=== PATIENT | female | born 1940 | race Caucasian/White ===

== ENCOUNTER 2021-08-17 00:52 | Inpatient (IN) | payer OTHER, BC ==
[2021-08-17 00:59] VITALS: BMI 25.4
[2021-08-17] MEDS ORDERED: MAG HYDROX/AL HYDROX/SIMETH -MYLANTA- ORAL SUSPENSION PO ONE (01:26)
[2021-08-17] MEDS ORDERED: ACETAMINOPHEN 1000 MG/100 ML BAG IVPB ONE (01:26)
[2021-08-17] MEDS ORDERED: FAMOTIDINE 20 MG/50 ML IVPB 20 MG/50 ML MG IVPB ONE (01:26)
[2021-08-17] MEDS ORDERED: MAG HYDROX/AL HYDROX/SIMETH 30 ML UNIT-DOSE CUP ONE (01:32)
[2021-08-17] MEDS ORDERED: ACETAMINOPHEN INJECTION 100 ML IVPB ONE (01:32)
[2021-08-17] MEDS ORDERED: FAMOTIDINE 10 MG/ML VIAL IVPB ONE (01:33)
[2021-08-17 01:58] LABS: BASO % 0.5 % (0-2.0); EOS % 1.2 % (0-4.5); HEMATOCRIT 44.3 % (32.4-45.2); HEMOGLOBIN 14.8 GM/dL (10.7-15.3); LYMPH % 9.9 % (8-40); MCH 28.9 pg (25.7-33.7); MCHC 33.5 g/dl (32.0-36.0); MEAN CELL VOLUME 86.4 fl (80-96); MEAN PLT VOLUME 7.5 fl (7.5-11.1); MONO % 2.9 % (3.8-10.2); NEUT % 85.5 % (42.8-82.8); PLATELET COUNT 269 10^3/uL (134-434); RBC 5.12 M/mm3 (3.60-5.2); RDW 14.5 % (11.6-15.6); WHITE BLOOD COUNT 8.7 K/mm3 (4.0-10.0)
[2021-08-17 02:04] LABS: EPI CELLS 22 /uL (0-25.1); HYALINE CASTS 2 /uL (0-3.1); PH,URINE 6.5 (5.0-8.0); URINE APPEARANCE CLOUDY; URINE BACTERIA 141 /uL (0-1359); URINE BILIRUBIN NEGATIVE (NEGATIVE); URINE COLOR YELLOW; URINE GLUCOSE (UA) NEGATIVE (NEGATIVE); URINE KETONE TRACE (NEGATIVE); URINE LEUK ESTERASE 1+ (NEGATIVE); URINE NITRITE NEGATIVE (NEGATIVE); URINE PROTEIN 1+ (NEGATIVE); URINE WBC 86 /uL (0-25.8)
[2021-08-17 02:05] LABS: INR 1.08 (0.83-1.09); PROTHROMBIN TIME (PATIENT) 12.4 SEC (9.7-13.0)
[2021-08-17 02:07] LABS: ACTIVATED PTT 37.5 SECONDS (25.2-36.5)
[2021-08-17 02:20] LABS: ALBUMIN 3.6 g/dl (3.4-5.0); BLOOD UREA NITROGEN 12.2 mg/dL (7-18); CALCIUM 9.1 mg/dL (8.5-10.1); MAGNESIUM 2.5 mg/dL (1.8-2.4)
[2021-08-17 02:23] LABS: CREATININE 0.5 mg/dL (0.55-1.3); PHOSPHOROUS 3.3 mg/dL (2.5-4.9)
[2021-08-17 02:25] LABS: BILIRUBIN,TOTAL 0.5 mg/dL (0.2-1); TOT PROT 7.5 g/dl (6.4-8.2)
[2021-08-17] MEDS ORDERED: morphine CARPU-JECT 2 MG/1 ML DISP.SYRIN IVPUSH ONE (03:49)
[2021-08-17] MEDS ORDERED: morphine SULFATE 4 MG/ML VIAL ONE (03:53)
[2021-08-17] MEDS ORDERED: BENZOCAINE 20% 57 GM BOTTLE TP ONE ×2 (04:04)
[2021-08-17] MEDS ORDERED: LIDOCAINE VISCOUS 2% ORAL/TOP 15 ML UNIT-DOSE CUP MM ONE (04:05)
[2021-08-17] MEDS ORDERED: LIDOCAINE HCL 2% JELLY 10 ML CARTRIDGE ONE (04:26)
[2021-08-17] MEDS ORDERED: SODIUM CHLORIDE 1,000 ML IV SCH (05:00)
[2021-08-17] MEDS ORDERED: FAMOTIDINE 20 MG/50 ML IVPB 20 MG/50 ML MG IVPB SCH (10:00)
[2021-08-17] MEDS ORDERED: BUPIVACAINE HCL/PF 0.5% (5MG/ML) 10 ML VIAL ONE ×2 (10:31→14:09)
[2021-08-17] MEDS ORDERED: LIDOCAINE HCL 1%, 10 MG/ML (20ML VIAL) ONE (10:31)
[2021-08-17] MEDS: INSULIN SLIDING SCALE (NOVOLOG) 1 VIAL SQ SCH ×4 (10:55→22:00)
[2021-08-17] MEDS ORDERED: DEXAMETHASONE SOD PHOSPHATE 4 MG/1 ML VIAL ONE (12:20)
[2021-08-17] MEDS ORDERED: LIDOCAINE HCL 2% 100 MG/5 ML DISP.SYRIN ONE (12:20)
[2021-08-17] MEDS ORDERED: ONDANSETRON 4 MG/2 ML VIAL ONE ×2 (12:20→14:24)
[2021-08-17] MEDS ORDERED: SUCCINYLCHOLINE CHLORIDE 200 MG/10 ML SYRINGE ONE (12:22)
[2021-08-17] MEDS ORDERED: ROCURONIUM BROMIDE 100 MG/10 ML VIAL ONE (12:22)
[2021-08-17] MEDS ORDERED: PROPOFOL 20 ML ONE ×2 (12:22→14:37)
[2021-08-17] MEDS ORDERED: MIDAZOLAM HCL 2 MG/2 ML SINGLE DOSE VIAL ONE (12:22)
[2021-08-17 12:35] LABS: BASO % 0.4 % (0-2.0); EOS % 3.5 % (0-4.5); HEMATOCRIT 47.4 % (32.4-45.2); HEMOGLOBIN 15.9 GM/dL (10.7-15.3); LYMPH % 16.9 % (8-40); MCHC 33.5 g/dl (32.0-36.0); MEAN CELL VOLUME 86.4 fl (80-96); MEAN PLT VOLUME 7.6 fl (7.5-11.1); MONO % 8.4 % (3.8-10.2); NEUT % 70.8 % (42.8-82.8); PLATELET COUNT 270 10^3/uL (134-434); RBC 5.48 M/mm3 (3.60-5.2); RDW 14.6 % (11.6-15.6); WHITE BLOOD COUNT 10.3 K/mm3 (4.0-10.0)
[2021-08-17 13:05] LABS: ALBUMIN 3.6 g/dl (3.4-5.0); BLOOD UREA NITROGEN 8.2 mg/dL (7-18); CALCIUM 9.2 mg/dL (8.5-10.1); MAGNESIUM 2.5 mg/dL (1.8-2.4)
[2021-08-17 13:08] LABS: CREATININE 0.5 mg/dL (0.55-1.3); PHOSPHOROUS 3.5 mg/dL (2.5-4.9)
[2021-08-17 13:10] LABS: BILIRUBIN,TOTAL 0.6 mg/dL (0.2-1); TOT PROT 7.7 g/dl (6.4-8.2)
[2021-08-17] MEDS ORDERED: LIDOCAINE HCL 1%, 10 MG/ML (20ML VIAL) NR ONE (13:11)
[2021-08-17] MEDS ORDERED: BUPIVACAINE HCL/PF 0.5% (5MG/ML) 10 ML VIAL IJ ONE (13:12)
[2021-08-17] MEDS ORDERED: BUPIVACAINE HCL/PF 0.25% (2.5MG/ML) 10 ML VIAL IJ ONE (14:00)
[2021-08-17] MEDS ORDERED: KETOROLAC TROMETHAMINE 30 MG/1 ML VIAL ONE (14:49)
[2021-08-17] MEDS ORDERED: NEOSTIGMINE METHYLSULFATE 0.5 MG/ML - 10 ML MDV ONE (14:59)
[2021-08-17] MEDS ORDERED: PROMETHAZINE HCL 25 MG/1 ML VIAL IVPUSH PRN ×2 (15:17→15:33)
[2021-08-17] MEDS ORDERED: ONDANSETRON 4 MG/2 ML VIAL IVPUSH PRN ×3 (15:17→15:33)
[2021-08-17] MEDS ORDERED: LACTATED RINGERS SOLUTION 1,000 ML IV SCH ×3 (15:30→15:33)
[2021-08-17] MEDS ORDERED: oxyCODONE HCL 5 MG TABLET PO PRN (15:35)
[2021-08-17] MEDS: ACETAMINOPHEN 500 MG TABLET (FP) PO SCH ×2 (15:45→23:50)
[2021-08-17] MEDS ORDERED: ceFAZolin SODIUM 1 GM VIAL ONE (16:55)
[2021-08-17] MEDS ORDERED: CEFAZOLIN 1 GM in DEXTROSE 5%-WATER - 50 ML IVPB ONE (16:55)
[2021-08-17] MEDS ORDERED: ALBUTEROL SO4 2.5/IPRATROPIUM 0.5 INH SOL 3 ML VIAL.NEB. NEB PRN (19:05)
[2021-08-17] MEDS ORDERED: IBUPROFEN 600 MG TABLET (FP) PO PRN (21:30)
[2021-08-17] MEDS: MYCOPHENOLATE MOFETIL 250 MG CAPSULE PO SCH (21:43)
[2021-08-17] MEDS: FAMOTIDINE 20 MG/50 ML IVPB 20 MG/50 ML MG IVPB SCH (21:44)
[2021-08-17] MEDS: ROSUVASTATIN CA 5 MG TABLET PO SCH (21:44)
[2021-08-18] MEDS ORDERED: ACETAMINOPHEN 1000 MG/100 ML BAG IVPB ONE (05:56)
[2021-08-18] MEDS: INSULIN SLIDING SCALE (NOVOLOG) 1 VIAL SQ SCH ×4 (06:21→22:36)
[2021-08-18 09:23] LABS: BASO % 0.3 % (0-2.0); EOS % 2.5 % (0-4.5); HEMATOCRIT 41.7 % (32.4-45.2); HEMOGLOBIN 13.9 GM/dL (10.7-15.3); MCH 28.8 pg (25.7-33.7); MCHC 33.3 g/dl (32.0-36.0); MEAN CELL VOLUME 86.6 fl (80-96); MEAN PLT VOLUME 7.7 fl (7.5-11.1); MONO % 7.8 % (3.8-10.2); NEUT % 76.4 % (42.8-82.8); PLATELET COUNT 235 10^3/uL (134-434); RBC 4.82 M/mm3 (3.60-5.2); RDW 14.4 % (11.6-15.6); WHITE BLOOD COUNT 10.6 K/mm3 (4.0-10.0)
[2021-08-18 10:05] LABS: CREATININE 0.3 mg/dL (0.55-1.3)
[2021-08-18 10:07] LABS: BLOOD UREA NITROGEN 7.6 mg/dL (7-18); TOT PROT 6.2 g/dl (6.4-8.2)
[2021-08-18 10:08] LABS: BILIRUBIN,TOTAL 0.9 mg/dL (0.2-1); CALCIUM 8.3 mg/dL (8.5-10.1); MAGNESIUM 2.3 mg/dL (1.8-2.4)
[2021-08-18 10:12] LABS: ALBUMIN 2.7 g/dl (3.4-5.0)
[2021-08-18] MEDS: MYCOPHENOLATE MOFETIL 250 MG CAPSULE PO SCH ×2 (10:34→22:34)
[2021-08-18] MEDS: LEVOTHYROXINE NA 75 MCG TABLET (FP) PO SCH (10:34)
[2021-08-18] MEDS: ACETAMINOPHEN 500 MG TABLET (FP) PO SCH ×2 (10:38→15:55)
[2021-08-18] MEDS: FAMOTIDINE/PF 20 MG/2 ML VIAL IVPB SCH ×2 (11:59→22:34)
[2021-08-18] MEDS: FAMOTIDINE 20 MG/50 ML IVPB 20 MG/50 ML MG IVPB SCH (18:44)
[2021-08-18] MEDS: ROSUVASTATIN CA 5 MG TABLET PO SCH (22:34)
[2021-08-19] MEDS: ACETAMINOPHEN 500 MG TABLET (FP) PO SCH ×3 (01:44→16:55)
[2021-08-19] MEDS: INSULIN SLIDING SCALE (NOVOLOG) 1 VIAL SQ SCH ×4 (06:30→21:34)
[2021-08-19] MEDS: LEVOTHYROXINE NA 75 MCG TABLET (FP) PO SCH (06:52)
[2021-08-19 10:03] LABS: BASO % 0.4 % (0-2.0); EOS % 2.9 % (0-4.5); HEMOGLOBIN 13.4 GM/dL (10.7-15.3); LYMPH % 9.2 % (8-40); MCHC 33.5 g/dl (32.0-36.0); MEAN CELL VOLUME 86.6 fl (80-96); MEAN PLT VOLUME 8.4 fl (7.5-11.1); MONO % 5.8 % (3.8-10.2); NEUT % 81.7 % (42.8-82.8); PLATELET COUNT 232 10^3/uL (134-434); RBC 4.62 M/mm3 (3.60-5.2); RDW 14.4 % (11.6-15.6); WHITE BLOOD COUNT 10.8 K/mm3 (4.0-10.0)
[2021-08-19 10:18] LABS: ALBUMIN 2.6 g/dl (3.4-5.0); BLOOD UREA NITROGEN 9.9 mg/dL (7-18); CALCIUM 8.1 mg/dL (8.5-10.1); MAGNESIUM 2.4 mg/dL (1.8-2.4)
[2021-08-19] MEDS: FAMOTIDINE/PF 20 MG/2 ML VIAL IVPB SCH (10:19)
[2021-08-19] MEDS: MYCOPHENOLATE MOFETIL 250 MG CAPSULE PO SCH ×2 (10:19→21:21)
[2021-08-19 10:22] LABS: BILIRUBIN,TOTAL 0.8 mg/dL (0.2-1)
[2021-08-19 10:23] LABS: TOT PROT 6.2 g/dl (6.4-8.2)
[2021-08-19 10:25] LABS: CREATININE 0.4 mg/dL (0.55-1.3)
[2021-08-19] MEDS: FAMOTIDINE 20 MG TABLET PO SCH (21:21)
[2021-08-19] MEDS: ROSUVASTATIN CA 5 MG TABLET PO SCH (21:21)
[2021-08-20] MEDS: ACETAMINOPHEN 500 MG TABLET (FP) PO SCH ×4 (00:53→22:51)
[2021-08-20] MEDS: LEVOTHYROXINE NA 75 MCG TABLET (FP) PO SCH (06:19)
[2021-08-20] MEDS: INSULIN SLIDING SCALE (NOVOLOG) 1 VIAL SQ SCH ×4 (06:19→22:50)
[2021-08-20] MEDS: FAMOTIDINE 20 MG TABLET PO SCH ×2 (09:16→22:18)
[2021-08-20] MEDS: MYCOPHENOLATE MOFETIL 250 MG CAPSULE PO SCH ×2 (09:16→22:18)
[2021-08-20] MEDS: ALBUTEROL SO4 2.5/IPRATROPIUM 0.5 INH SOL 3 ML VIAL.NEB. NEB SCH ×2 (16:21→20:10)
[2021-08-20] MEDS: POLYETHYLENE GLYCOL (HEALTHYLAX) 3350 17 GM PACKET PO SCH (22:17)
[2021-08-20] MEDS: ROSUVASTATIN CA 5 MG TABLET PO SCH (22:18)
[2021-08-21] MEDS: INSULIN SLIDING SCALE (NOVOLOG) 1 VIAL SQ SCH ×3 (06:02→16:26)
[2021-08-21] MEDS: LEVOTHYROXINE NA 75 MCG TABLET (FP) PO SCH (06:02)
[2021-08-21] MEDS: ALBUTEROL SO4 2.5/IPRATROPIUM 0.5 INH SOL 3 ML VIAL.NEB. NEB SCH ×3 (07:30→16:23)
[2021-08-21 08:01] LABS: BASO % 0.5 % (0-2.0); EOS % 5.3 % (0-4.5); HEMATOCRIT 41.7 % (32.4-45.2); HEMOGLOBIN 13.9 GM/dL (10.7-15.3); LYMPH % 18.7 % (8-40); MCH 28.8 pg (25.7-33.7); MCHC 33.4 g/dl (32.0-36.0); MEAN CELL VOLUME 86.1 fl (80-96); MEAN PLT VOLUME 7.5 fl (7.5-11.1); MONO % 7.1 % (3.8-10.2); NEUT % 68.4 % (42.8-82.8); PLATELET COUNT 264 10^3/uL (134-434); RBC 4.84 M/mm3 (3.60-5.2); RDW 14.5 % (11.6-15.6); WHITE BLOOD COUNT 9.4 K/mm3 (4.0-10.0)
[2021-08-21 08:21] LABS: ALBUMIN 2.6 g/dl (3.4-5.0); BLOOD UREA NITROGEN 8.3 mg/dL (7-18); CALCIUM 8.4 mg/dL (8.5-10.1); MAGNESIUM 2.3 mg/dL (1.8-2.4)
[2021-08-21 08:25] LABS: CREATININE 0.4 mg/dL (0.55-1.3)
[2021-08-21 08:26] LABS: BILIRUBIN,TOTAL 1.1 mg/dL (0.2-1); TOT PROT 6.5 g/dl (6.4-8.2)
[2021-08-21] MEDS ORDERED: guaiFENesin 200 MG/10 ML 10 ML UNIT-DOSE CUPS PO PRN (08:54)
[2021-08-21] MEDS: MYCOPHENOLATE MOFETIL 250 MG CAPSULE PO SCH (09:58)
[2021-08-21] MEDS: ACETAMINOPHEN 500 MG TABLET (FP) PO SCH ×2 (10:00→16:20)
[2021-08-21] MEDS: POLYETHYLENE GLYCOL (HEALTHYLAX) 3350 17 GM PACKET PO SCH (10:00)
[2021-08-21] MEDS: FAMOTIDINE 20 MG TABLET PO SCH (10:00)
[2021-08-21 17:08] VITALS: BP 158/83; PULSE 120; TEMP 98.1
== END 2021-08-21 18:08 | DRG 351 ==
LOC: JER 00:52 → JERBED 04:23 → J8W 06:57
PROVIDERS: ADMIT Hospitalist; ATTEND Nurse Practitioner Acute Care
PROC: 0YU80JZ Supplement Left Femoral Region with Synthetic Substitute, Open Approach (ICD-10-PCS; principal; 2021-08-17 12:57)
DX: K41.30 Unilateral femoral hernia, with obstruction, without gangrene, not specified as recurrent (principal); J84.9 Interstitial pulmonary disease, unspecified; I10 Essential (primary) hypertension; J84.10 Pulmonary fibrosis, unspecified; E11.9 Type 2 diabetes mellitus without complications; E03.9 Hypothyroidism, unspecified; Z99.81 Dependence on supplemental oxygen
CPT/HCPCS: 0241U-QW; 36415; 71045-TC-FY; 74177-TC; 80053; 81003; 82962; 83605; 83690; 83735; 84100; 85025; 85610; 85730; 86850; 86900; 86901; 87086; 87807; 88302-TC; 93005; 93010; 94010; 94640; 94760; 94761; 97116-GP; 99285-25; C9803-CS; J7517; U0003; U0005

== ENCOUNTER 2021-08-27 20:37 | Inpatient (IN) | payer OTHER, BC ==
[2021-08-27 21:03] LABS: VENOUS BASE EXCESS -0.2 mmol/L (-2-2); VENOUS O2 SATURATION 73.9 % (70-80); VENOUS PCO2 50.8 mmHg (38-52); VENOUS PH 7.336 (7.310-7.410)
[2021-08-27 21:09] LABS: BASO % 0.2 % (0-2.0); EOS % 2.9 % (0-4.5); LYMPH % 9.5 % (8-40); MCH 28.4 pg (25.7-33.7); MCHC 32.6 g/dl (32.0-36.0); MEAN CELL VOLUME 87.2 fl (80-96); NEUT % 81.4 % (42.8-82.8); PLATELET COUNT 524 10^3/uL (134-434); RBC 4.93 M/mm3 (3.60-5.2); RDW 14.4 % (11.6-15.6); WHITE BLOOD COUNT 18.4 K/mm3 (4.0-10.0)
[2021-08-27 21:12] LABS: INR 1.17 (0.83-1.09); PROTHROMBIN TIME (PATIENT) 13.5 SEC (9.7-13.0)
[2021-08-27 21:14] LABS: ACTIVATED PTT 34.5 SECONDS (25.2-36.5)
[2021-08-27 21:24] LABS: CALCIUM 8.6 mg/dL (8.5-10.1)
[2021-08-27 21:26] LABS: ALBUMIN 2.5 g/dl (3.4-5.0); BLOOD UREA NITROGEN 8.9 mg/dL (7-18)
[2021-08-27 21:29] LABS: CREATININE 0.5 mg/dL (0.55-1.3)
[2021-08-27] MEDS ORDERED: ACETAMINOPHEN 1000 MG/100 ML BAG IVPB ONE (21:31)
[2021-08-27 21:32] LABS: BILIRUBIN,TOTAL 0.5 mg/dL (0.2-1)
[2021-08-27] MEDS ORDERED: VANCOMYCIN 1 GM in D5W (PRE-DOCKED) 1,000 MG/250 ML IVPB ONE (21:32)
[2021-08-27] MEDS ORDERED: CEFEPIME HCL/D5W 2 GM/50 ML BAG IVPB ONE (21:32)
[2021-08-27] MEDS ORDERED: SODIUM CHLORIDE 0.9% 500 ML INFUS.BAG IV ONE ×2 (21:33→22:26)
[2021-08-27 21:34] LABS: LACTIC ACID 2.9 mmol/L (0.4-2.0)
[2021-08-27] MEDS ORDERED: ACETAMINOPHEN INJECTION 100 ML IVPB ONE (22:05)
[2021-08-27] MEDS ORDERED: VANCOMYCIN 1 GRAM (PRE-DOCKED) 1,000 MG/250 ML BAG IVPB ONE (22:05)
[2021-08-27] MEDS ORDERED: CEFEPIME 2 GM/100 ML BAG IVPB ONE (22:06)
[2021-08-28] MEDS ORDERED: guaiFENesin 200 MG/10 ML 10 ML UNIT-DOSE CUPS PO PRN
[2021-08-28] MEDS ORDERED: ACETAMINOPHEN 500 MG TABLET (FP) PO PRN
[2021-08-28] MEDS ORDERED: ALBUTEROL SO4 2.5/IPRATROPIUM 0.5 INH SOL 3 ML VIAL.NEB. NEB PRN
[2021-08-28 01:36] LABS: URINE APPEARANCE CLEAR; URINE COLOR YELLOW; URINE GLUCOSE (UA) NEGATIVE (NEGATIVE)
[2021-08-28 01:37] LABS: URINE BILIRUBIN NEGATIVE (NEGATIVE); URINE KETONE NEGATIVE (NEGATIVE); URINE LEUK ESTERASE NEGATIVE (NEGATIVE); URINE NITRITE NEGATIVE (NEGATIVE); URINE PROTEIN TRACE (NEGATIVE)
[2021-08-28 01:38] LABS: HYALINE CASTS 0 /uL (0-3.1); URINE BACTERIA 11 /uL (0-1359); URINE RBC 29 /uL (0-23.9)
[2021-08-28] MEDS ORDERED: ALBUTEROL SO4 2.5/IPRATROPIUM 0.5 INH SOL 3 ML VIAL.NEB. NEB ONE (03:10)
[2021-08-28] MEDS ORDERED: ALBUTEROL SO4 0.083% IH SOL 2.5 MG/3 ML VIAL.NEB. NEB ONE (03:10)
[2021-08-28] MEDS ORDERED: LEVOTHYROXINE NA 75 MCG TABLET (FP) ONE ×2 (06:56→09:10)
[2021-08-28] MEDS: SODIUM CHLORIDE 1,000 ML IV SCH (07:44)
[2021-08-28] MEDS ORDERED: HEPARIN NA (PORCINE) 5,000 UNITS/ML 1ML VIAL ONE (09:10)
[2021-08-28] MEDS ORDERED: POLYETHYLENE GLYCOL (HEALTHYLAX) 3350 17 GM PACKET ONE (09:10)
[2021-08-28] MEDS ORDERED: FAMOTIDINE 20 MG TABLET ONE (09:10)
[2021-08-28] MEDS: HEPARIN NA (PORCINE) 5,000 UNITS/ML 1ML VIAL SQ SCH ×2 (09:46→21:27)
[2021-08-28] MEDS ORDERED: MYCOPHENOLATE MOFETIL 250 MG CAPSULE PO SCH (10:00)
[2021-08-28] MEDS ORDERED: CEFEPIME 2 GM/100 ML BAG IVPB ONE (14:35)
[2021-08-28] MEDS: CEFEPIME 2 GM in DEXTROSE 5%-WATER 100 ML IVPB SCH ×2 (14:36→18:40)
[2021-08-28] MEDS: LEVOTHYROXINE NA 75 MCG TABLET (FP) PO SCH (16:05)
[2021-08-28] MEDS: FAMOTIDINE 20 MG TABLET PO SCH ×2 (16:05→21:26)
[2021-08-28] MEDS: POLYETHYLENE GLYCOL (HEALTHYLAX) 3350 17 GM PACKET PO SCH ×2 (16:05→21:26)
[2021-08-28] MEDS ORDERED: LORazepam 2 MG/ML SDV VIAL IVPUSH ONE ×2 (16:44→17:30)
[2021-08-28] MEDS ORDERED: DEXTROSE 5%-WATER 100 ML IVPB ONE (17:03)
[2021-08-28] MEDS ORDERED: CEFEPIME HCL 2 GM VIAL (RESTRICTED TO ID) ONE (17:03)
[2021-08-28] MEDS ORDERED: RAPID SEQUENCE INTUBATION KIT NR ONE (17:53)
[2021-08-28] MEDS ORDERED: ACETAMINOPHEN 1000 MG/100 ML BAG IVPB ONE (20:27)
[2021-08-28 21:23] LABS: ARTERIAL BLD GAS O2 SATURATION 85.4 % (95-98); ARTERIAL BLOOD GAS BASE EXCESS -0.3 mmol/L (-2-2); ARTERIAL BLOOD GAS PO2 56.1 mmHg (80-100); ARTERIAL BLOOD GAS pH 7.295 (7.350-7.450)
[2021-08-28 21:24] LABS: VENT MODE S/T; VENT RATE 18
[2021-08-28] MEDS: MUPIROCIN 2% TOPICAL OINTMENT FOR DECOLONIZATION NS SCH (21:26)
[2021-08-28] MEDS ORDERED: ROSUVASTATIN CA 5 MG TABLET PO SCH (22:00)
[2021-08-28] MEDS ORDERED: VANCOMYCIN/WATER FOR INJ (PEG) 1,000 MG/200 ML BAG IVPB SCH (22:00)
[2021-08-28] MEDS ORDERED: CHLORHEXIDINE GLUCONATE 4% CLEANSER FOR DECOLONIZATION TP SCH (22:00)
[2021-08-29] MEDS ORDERED: CEFEPIME HCL 2 GM VIAL (RESTRICTED TO ID) ONE ×3 (00:21→08:19)
[2021-08-29] MEDS ORDERED: DEXTROSE 5%-WATER 100 ML IVPB ONE ×3 (00:21→08:19)
[2021-08-29] MEDS: SODIUM CHLORIDE 1,000 ML IV SCH (01:39)
[2021-08-29] MEDS: CEFEPIME 2 GM in DEXTROSE 5%-WATER 100 ML IVPB SCH ×2 (04:35→09:44)
[2021-08-29] MEDS: LEVOTHYROXINE NA 75 MCG TABLET (FP) PO SCH (06:09)
[2021-08-29 06:51] LABS: HEMATOCRIT 42.1 % (32.4-45.2); HEMOGLOBIN 13.4 GM/dL (10.7-15.3); MCH 28.4 pg (25.7-33.7); MCHC 31.9 g/dl (32.0-36.0); MEAN PLT VOLUME 7.3 fl (7.5-11.1); PLATELET COUNT 508 10^3/uL (134-434); RBC 4.73 M/mm3 (3.60-5.2); RDW 15.1 % (11.6-15.6); WHITE BLOOD COUNT 22.3 K/mm3 (4.0-10.0)
[2021-08-29 07:09] LABS: CHLORIDE 103 mmol/L (98-107); SODIUM 139 mmol/L (136-145)
[2021-08-29 07:15] LABS: MAGNESIUM 2.6 mg/dL (1.8-2.4)
[2021-08-29 07:17] LABS: ALBUMIN 2.1 g/dl (3.4-5.0); ANION GAP 6 MMOL/L (8-16); BLOOD UREA NITROGEN 16.2 mg/dL (7-18); CALCIUM 8.7 mg/dL (8.5-10.1); CO2 30 mmol/L (21-32); GLUCOSE,RANDOM 81 mg/dL (74-106)
[2021-08-29 07:19] LABS: PHOSPHOROUS 3.6 mg/dL (2.5-4.9)
[2021-08-29 07:20] LABS: SGOT/AST 71 U/L (15-37); SGPT/ALT 24 U/L (13-61)
[2021-08-29 07:22] LABS: BILIRUBIN,TOTAL 0.6 mg/dL (0.2-1); CREATININE 0.3 mg/dL (0.55-1.3); TOT PROT 6.4 g/dl (6.4-8.2)
[2021-08-29 07:23] LABS: ALK PHOS 214 U/L (45-117)
[2021-08-29 07:23] LABS: N-TERMINAL BNP 1091.8 pg/ml (5-450)
[2021-08-29 08:53] LABS: ANISOCYTOSIS 0; HELMET CELLS 0; HOWELL-JOLLY BODIES 0; MACROCYTOSIS 0; OVALOCYTE 0; ROULEAU 0; SICKELED CELLS 0; TARGET CELLS 0; TEAR DROP CELLS 0; TOXIC GRANULATION 0
[2021-08-29] MEDS: HEPARIN NA (PORCINE) 5,000 UNITS/ML 1ML VIAL SQ SCH (09:43)
[2021-08-29] MEDS: MUPIROCIN 2% TOPICAL OINTMENT FOR DECOLONIZATION NS SCH (09:44)
[2021-08-29] MEDS: POLYETHYLENE GLYCOL (HEALTHYLAX) 3350 17 GM PACKET PO SCH (09:44)
[2021-08-29] MEDS: FAMOTIDINE 20 MG TABLET PO SCH ×2 (09:45→22:01)
[2021-08-29 09:52] LABS: ARTERIAL BLD GAS O2 SATURATION 83.7 % (95-98); ARTERIAL BLOOD GAS BASE EXCESS -1.7 mmol/L (-2-2); ARTERIAL BLOOD GAS PO2 56.2 mmHg (80-100)
[2021-08-29 09:54] LABS: ALLENS TEST POSITIVE
[2021-08-29] MEDS ORDERED: AZITHROMYCIN IVPB 500 MG/250 ML BAG IVPB SCH (10:00)
[2021-08-29 15:15] VITALS: BMI 26.2
[2021-08-29] MEDS ORDERED: MORPHINE SULFATE/0.9% NACL/PF 100 MG/100 ML BAG IVPB SCH (16:15)
[2021-08-29 16:17] VITALS: BP 144/53
[2021-08-30 07:07] VITALS: PULSE 70; TEMP 99.1
== END 2021-08-30 07:19 | disposition expired | DRG 862 ==
LOC: JER 20:37 → JERBED 20:42 → JICU 08-28 14:57
PROVIDERS: ADMIT Internal Medicine; ATTEND Internal Medicine
DX: T81.44XA Sepsis following a procedure, initial encounter (principal); J18.9 Pneumonia, unspecified organism; J96.01 Acute respiratory failure with hypoxia; J95.89 Other postprocedural complications and disorders of respiratory system, not elsewhere classified; Y83.9 Surgical procedure, unspecified as the cause of abnormal reaction of the patient, or of later complication, without mention of misadventure at the time of the procedure; E03.9 Hypothyroidism, unspecified; I10 Essential (primary) hypertension; E78.5 Hyperlipidemia, unspecified
CPT/HCPCS: 0241U-QW; 36415; 36600; 71045-TC-FY; 71275-TC; 80053; 81003; 82550; 82803; 82962; 83605; 83735; 83880; 84100; 84443; 84484; 85025; 85610; 85730; 87040; 87081; 87086; 87899; 93005; 93010; 93306-TC; 94660; 99291; C9803-CS; J1644; Q9967; U0003; U0005